=== PATIENT | female | born 1995 | race Two or more races ===

== ENCOUNTER → 2019-03-19 | Outpatient (CLI) | payer OTHER ==
--- NOTE | 2019-03-19 14:53 | RAD ---
CLINICAL HISTORY: First trimester OB, intrauterine COMPARISON: None available. TECHNIQUE: Transabdominal ultrasound of the pelvis was performed FINDINGS: An intrauterine gestational sac is present. An embryo is identified .Cardiac activity is visualized and documented at a rate of 162 beats per minute. Small volume subchorionic hemorrhage measuring 1.4 x 1.8 x 0.6 cm.. Based on a crown rump length averaging 4 cm, the estimated gestational age is 10 weeks, 6 days. Estimated date of delivery is 10/09/2019. The right ovary measures 3.7 x 3.5 x 2.8 cm. The left ovary was not visualized. Flow is seen to the right ovary. There is no pelvic free fluid. IMPRESSION: 1. Single live intrauterine gestation with mean sonographic age of 10 weeks, 6 days. The estimated date of delivery is 10/09/2019. 2. Small subchorionic hemorrhage measuring up to 1.8 cm. 3. No abnormal adnexal masses Electronically signed by: Marvin Duong MD (03/19/2019 2:51 PM) [facility]
== END | disposition home or self-care (01) ==
LOC: US 07:30
PROVIDERS: ATTEND Family Medicine
DX: O20.8 Other hemorrhage in early pregnancy (principal); Z3A.10 10 weeks gestation of pregnancy
CPT/HCPCS: 76801

== ENCOUNTER → 2019-05-26 | Outpatient (CLI) | payer MEDICAID ==
--- NOTE | 2019-05-26 17:02 | KCIC ---
EXAM: Obstetrics sonogram. HISTORY: anatomy and weight assessment. TECHNIQUE: Sonographic imaging of a gravid uterus was performed. COMPARISON: 03/19/2019. FINDINGS: There is a single intrauterine fetus in breech presentation with a heart rate of 153 bpm. The stomach, kidneys, bladder, brain, facial profile and extremities are unremarkable. The cardiac outflow tracts and sacrum are not well seen due to presentation. There is a three-vessel umbilical cord with normal insertion. The cervix is closed and measures 3.7 cm in length. The amniotic fluid index is normal at 11.4 cm. There is a posterior fundal placenta without evidence of placenta previa. The biparietal diameter is 4.73 cm, corresponding with 20 weeks and 2 days. The head circumference is 18.34 cm, corresponding with 20 weeks and 5 days. The abdominal circumference is 15.94 cm, corresponding with 21 weeks and 0 days. The femoral length is 3.36 cm, corresponding with 20 weeks and 4 days. The estimated gestational age patient combined ultrasound measurements is 20 weeks and 5 days and the estimated due date is 10/08/2019. The estimated weight is 377 g. IMPRESSION: 1. Single intrauterine fetus in breech presentation with a heart rate of 153 bpm and gestational age based on ultrasound measurements of 20 weeks and 5 days. 2. Suboptimal evaluation of the sacrum and ventricular outflow tracts. Short-term sonographic follow-up can be performed to confirm an otherwise unremarkable anatomy survey. Electronically signed by: Margot Leggett MD (05/26/2019 4:59 PM) [id number]
== END | disposition home or self-care (01) ==
LOC: KCIC US 12:02
PROVIDERS: ATTEND Family Medicine
DX: O32.1XX1 Maternal care for breech presentation, fetus 1 (principal); Z3A.20 20 weeks gestation of pregnancy
CPT/HCPCS: 76805

== ENCOUNTER → 2019-07-15 | Outpatient (CLI) | payer MEDICAID ==
--- NOTE | 2019-07-15 12:15 | RAD ---
EXAM: Obstetrics sonogram. HISTORY: Large for dates. TECHNIQUE: Sonographic imaging of a gravid uterus was performed. COMPARISON: 05/26/2019. FINDINGS: There is a single intrauterine fetus in cephalic presentation with a normal heart rate of 141 bpm. The cervix is closed and measures 5.7 cm in length. There is a grade 1 posterior placenta without evidence of placenta previa. The biparietal diameter is 6.71 cm, corresponding with 27 weeks and 0 days. The head circumference is 25.28 cm, corresponding with 27 weeks and 3 days. The abdominal circumference is 23.32 cm, corresponding with 27 weeks and 5 days. The femoral length is 5.14 cm, corresponding with 27 weeks and 3 days. The estimated gestational age patient combined ultrasound measurements is 27 weeks and 3 days and the estimated due date is 10/11/2019. The estimated weight is 1090 g, corresponding with the 43rd percentile. The anatomic fluid index is normal at 9.9 cm. The lumbosacral spine and right and left outflow tracts are unremarkable. The structures were not well seen on the anatomy survey performed 05/26/2019. The remainder of the anatomy is not formally assessed on the current exam. IMPRESSION: 1. Single intrauterine fetus in cephalic presentation with a normal heart rate and gestational age based on ultrasound measurements of 27 weeks and 3 days. The estimated weight is at the 43rd percentile for an estimated gestational age of 27 weeks and 6 days based on LMP. 2. Unremarkable lumbosacral spine and right and left outflow tracts. These structures were not well assessed on the prior anatomy survey. Electronically signed by: Margot Leggett MD (07/15/2019 12:11 PM) [place] [id number]
== END | disposition home or self-care (01) ==
LOC: US 10:46
PROVIDERS: ATTEND Family Medicine
DX: O36.62X0 Maternal care for excessive fetal growth, second trimester, not applicable or unspecified (principal); Z3A.27 27 weeks gestation of pregnancy
CPT/HCPCS: 76805